=== PATIENT | female | born 1945 | race Caucasian/White ===

== ENCOUNTER 2016-08-08 08:53 | Outpatient (CLI) | payer OTHER ==
--- NOTE | 2016-08-08 09:24 | DIAGNOSTIC IMAGING REPORT ---
PROCEDURE: XR KNEE 3 VIEWS - RIGHT INDICATION: KNEE JOINT PX TECHNIQUE: Three views. COMPARISON: None. FINDINGS: Severe patellofemoral osteoarthritis with obliteration of the joint space laterally. There is also sclerosis in the adjacent bone. IMPRESSION: 1. Severe patellofemoral osteoarthritis right knee.
== END 2016-08-08 23:00 ==
LOC: XR SRH 08:53
DX: M17.11 Unilateral primary osteoarthritis, right knee (principal)